=== PATIENT | female | born 1940 | race Caucasian/White ===

== ENCOUNTER 2018-11-05 10:06 | Day surgery (SDC) | payer MEDICARE, OTHER, SELFPAY ==
[2018-10-22 08:39] VITALS: BMI 27.1
[2018-11-05] VITALS (14 sets, daily range): BP systolic 116–175; BP diastolic 58–86; PULSE 77–100; RESP 9–20; TEMP 36.2–36.8; O2SAT 92–99; BMI 27.1
--- NOTE | 2018-11-05 11:09 | DI.RAD.S_ITS ---
PROCEDURE: XR KNEE RT 1TO2V INDICATIONS: prosthesis placement TECHNIQUE: 2 view(s) of the knee acquired. COMPARISON: None. FINDINGS: Bones: Patient is status post knee joint arthroplasty. Hardware components are in expected positions. Visualized bony structures are intact. Soft tissues: Overlying postoperative changes are noted. IMPRESSION: Postsurgical changes from right total knee arthroplasty with anatomic right knee alignment. Dictated by: Kodi Gastelum M.D. on 11/05/2018 at 15:24 Approved by: Kodi Gastelum M.D. on 11/05/2018 at 15:24
[2018-11-05] MEDS: PREGABALIN 75 MG CAPSULE PO (11:48)
[2018-11-05] MEDS: MELOXICAM 7.5 MG TABLET 15 MG PO (11:48)
[2018-11-05] MEDS: LACTATED RINGERS 1,000 ML 42 ML IV ×2 (12:00→14:39)
--- NOTE | 2018-11-05 12:24 | PM.PREOP ---
Pre-operative Note Interval Note History & Physical reviewed/Exam performed by Physician: Yes Changes to H&P: No
--- NOTE | 2018-11-05 13:03 | PM.OP.1 ---
Operative Date/Time/Diagnoses Date of procedure: 11/05/18 Time of procedure: 14:35 Pre-op diagnosis: Right knee osteoarthritis Post-op diagnosis: same Procedure & Clinicians Procedure: Right total knee replacement Same procedure as scheduled: Yes Indications: The patient has had progressively worsening right knee pain with radiographic changes consistent with arthritis. Non-operative management has failed and the patient has requested total knee replacement. The risks, benefits and alternatives to surgery were discussed with the patient prior to proceeding. Risks discussed included, but were not limited to, failure to relieve pain, stiffness, infection, nerve damage, deep venous thrombosis, pulmonary embolism, stroke, coma, heart attack, permanent paralysis and , as well as the potential need for eventual revision of the prosthetic. Surgeon: Guillermo Rivas Food Broker: Brigitte Morgan Click Yes if Unassisted: No Anesthesia Type: Spinal, Sedation and Local Operative Notes Findings: Severe medial and mild patellofemoral and lateral osteoarthritis Closure Type: primary Specimen(s): none sent Prosthetic devices, grafts, tissues, transplants, or devices: Implants used in this procedure were manufactured by the [employer] and [employer] and included the BCS II Journey total knee replacement with a size 5 right cobalt chromium femur, a size 4 right non porous tibial base plate, a 9 mm cross-linked polyethylene tibial insert and a 32 mm oval Fabienne II patellar component. Applied: implant(s) Estimated Blood Loss (mL): 50 Blood products transfused: none Tourniquet time (min): 54 Procedure in detail: The patient was seen in the pre-operative area, where the patient identified the right knee as the operative site and this was marked with my initials. The patient received pre-operative antibiotics, and was taken to the operating room and placed on the operative table in the supine position. After satisfactory anesthesia, a time motion analyst out was performed. The right leg was encircled with a tourniquet about the proximal thigh, and the leg was prepared from the toes to the tourniquet with ChloroPrep in the usual fashion and draped through sterile drapes. The leg was elevated and exsanguinated with Eschmark bandage and the tourniquet inflated to 250 mmHg pressure. The knee was approached through an approximately 18 cm incision centered over the patella and carried into the knee through a medial parapatellar arthrotomy. The anterior osteophytes and soft tissues were removed. The rotational landmarks of Meeker's line and the transepicondylar axis were marked on the femur with electrocautery, and intramedullary guide holes for the femur and tibia were created. The distal femoral cut was made in 6 degrees of valgus using the intramedullary guide at the primary cut setting. The proximal tibial cut was then made using the intramedullary guide, taking 9 mm of bone off the less involved side. The extension gap was checked and the rotation of the femoral component confirmed with the gap balancing system. The anterior, posterior and chamfer cuts were then made. The posterior osteophytes and soft tissues were then removed. The posterior capsule was injected with part of a mixture of 60 ml 0.25% Marcaine mixed with 20 ml Exparel and 4 mg of morphine for post-operative pain control. The remainder of this mixture was injected into the capsule and subcutaneous tissues during cement curing. The tibia was prepared with the rotation set by an extra medullary guide. Trial tibial and femoral components were then placed and the intercondylar notch cut through the femoral trial. Range of motion was 0-135 degrees, with good stability throughout the range. The patella was then cut to accommodate the patellar prosthetic. There was no need for a lateral release. The trials were then removed, and the femoral hole plugged with a bone plug. The bone was prepared with pulsatile lavage, and dried with a sponge. Cement was applied and the final prosthetics placed. Excess cement was removed during and after cement curing. After confirming there was no extruded cement posteriorly, the final tibial insert was placed. The knee was copiously irrigated and the tourniquet deflated. Hemostasis was obtained. The capsule was closed with interrupted # 2 polyester suture. The subcutaneous layer was closed with 3-0 Vicryl, and the skin with a running 3-0 V-Lock suture and SteriStrips. An Aquacel Ag dressing was applied and the patient was taken to recovery having tolerated the procedure well. Complications: none Condition: stable Disposition: PACU Plan for aftercare: The patient will be maintained on a standard total knee replacement protocol with weight bearing as tolerated. The patient will receive aspirin and sequential compression devices for DVT prophylaxis. The patient will be discharged home when safe for the home environment.
[2018-11-05] MEDS: CEFAZOLIN 1 GM VIAL IV (13:12)
--- NOTE | 2018-11-05 13:36 | SUR.OPER ---
Supine on padded OR bed. Pillow under head, arms secured on padded armboards <90 degree abduction. Safety belt across torso. Non-operative leg secured with tape over blanket over lower leg. Operative leg secured in DeMayo/Juan positioner. Foam padded brace at thigh of operative leg.
[2018-11-05] MEDS: BUPIVACAINE LIPOSOME 266 MG/20 ML VIAL INJ (13:41)
[2018-11-05] MEDS: MORPHINE 4 MG/ML INJ INJ (13:41)
[2018-11-05] MEDS: BUPIVACAINE 0.25% W/ EPI (PF) 10 ML VIAL 20 ML INJ (13:42)
[2018-11-05] MEDS: TRANEXAMIC ACID 1,000 MG VIAL 1000 MG INJ ×2 (13:43→14:09)
[2018-11-05] MEDS: MEPERIDINE 100 MG/ML 20 MG IV (15:16)
--- NOTE | 2018-11-05 15:42 | SUR.PHASEI ---
report called to floor; skin warm and dry, shivering subsided. Pt does not want ada hugger turned down, she is enjoying the heat. Denies pain/nausea, CBG reported to Dr. Blanton by JM Reinoso; order received.
[2018-11-05] MEDS: INSULIN ASPART 100 UNIT/ML 10ML VIAL SUBCUT (15:58)
--- NOTE | 2018-11-05 16:00 | SUR.PHASEI ---
insulin was a verbal order from Dr. Blanton/Noam Ruiz RN
--- NOTE | 2018-11-05 16:17 | SUR.PHASEI ---
1608 to room 211, family present. Patient dozing, arouses easily, oriented, Tolerated PO well, denies pain/nausea. Improving motion/sensation in LE; skin warm and dry; resp unlabored. clothing bag to room; report updated. SCD's on, Sat upper 90s, no O2 at this time, Rn informed that she needed O2 in PACU>
--- NOTE | 2018-11-05 16:27 | SUR.PHASEI ---
delay on exiting PACU was due to waiting for pharmacy to bring insulin; RN went and obtained medication.
[2018-11-05] MEDS: LACTATED RINGERS 1,000 ML 125 ML IV (16:35)
--- NOTE | 2018-11-05 17:31 | PT.IPTN ---
Current Diagnoses Unilateral primary osteoarthritis, right knee (11/05/18) Surgery Performed Operation Date: 11/05/18 12:15 Actual Procedures p Total Knee Arthroplasty(Right) - Guillermo Rivas MD Physical Therapy Treatment Note M3 PT-IP Subjective Start: 11/05/18 17:30 Freq: NEEDED Status: Active Protocol: Document 11/05/18 17:30 HH (Rec: 11/05/18 17:31 HH [id number]) Subjective Physical Therapy Visit Type Type Administrative Note Visit Start Time 17:30 Notes Pt is awake and AxOx4. R LE remains numb and no active movement noted except toes and ankle. TKA information book is given. Reattempt PT eval tomorrow.
--- NOTE | 2018-11-05 19:13 | PC.ADMIT ---
Addendum entered by Jodee Lei R.N. 11/05/18 22:16: 2030- pt given meds. started on 1L NC as pt o2 was high 80s on room air while sleeping. pt compliant. will continue to monitor. Original Note: Admission Note: 1610- to room. family at bedside. pt droqsy but arouses to voice. on 2L NC. saturation 100. weaned to 1L. does well. cont pulse ox on. 95% with il. updated pt on plan of care. given water and apple sauce. ate dinner. denied nausea. bed alarm on. oriented pt to room and hospital procedures. dressing c.d.i. pt cooperative with nursing assessment. many questions answered and pt and family appreciative. will continue to monitor. bed alarm on. side rails upx3.
[2018-11-05] MEDS: ASPIRIN EC 81 MG TABLET PO (20:55)
[2018-11-05] MEDS: DOCUSATE 100 MG CAPSULE PO (20:55)
[2018-11-05] MEDS: ACETAMINOPHEN 325 MG TABLET 975 MG PO (20:56)
[2018-11-05] MEDS: CEFAZOLIN 2 GM/100 ML FROZ.PIGGY IV (20:58)
[2018-11-05] MEDS: IBUPROFEN 400 MG TABLET PO (22:20)
[2018-11-06] VITALS (9 sets, daily range): BP systolic 104–138; BP diastolic 49–72; PULSE 70–75; RESP 14–20; TEMP 36.2–37.4; O2SAT 84–99
--- NOTE | 2018-11-06 01:10 | PC.NURSE ---
Addendum entered by Irina Amaro R.N. 11/06/18 05:59: Up to bathroom shortly after 0500 and complained of 6/10 right knee pain so medicated with Ibuprofen. Now asleep. Left oxygen off again to assess for need and currently O2 sat is 95%. Original Note: Addendum entered by Irina Amaro R.N. 11/06/18 01:32: RA sat 84% so placed back on oxygen at 1L/min Original Note: Patient is alert and oriented. Breath sounds CTA with sat of 97% on 1L/min oxygen so oxygen removed to assess need for continued O2. HRR. Denies nausea. BT hypoactive; denies flatus. Up to BSC with 1 assist (no walker used) and did well with getting in/out of bed by herself. Dressing (Aquacel + lilibeth wrap) CDI. Denies pain. CMS intact. Wearing bilateral SCD's. Able to turn self in bed. Reports frequent falls prior to admission; fall risk score is high and bed alarm is activated.
[2018-11-06] MEDS: LACTATED RINGERS 1,000 ML 125 ML IV (01:46)
[2018-11-06] MEDS: CEFAZOLIN 2 GM/100 ML FROZ.PIGGY IV (05:13)
[2018-11-06] MEDS: IBUPROFEN 400 MG TABLET PO ×3 (05:17→13:43)
[2018-11-06 06:29] LABS: Hematocrit 33.7 % (36-46); Hemoglobin 11.4 g/dL (12.0-16.0)
--- NOTE | 2018-11-06 07:33 | PM.DS.1 ---
History of Present Illness Date Patient Seen: 11/06/18 Time Patient Seen: 07:33 Chief complaint: Right Total Knee Arthroplasty Narrative: The history and physical are contained in the chart in a previously completed note. Please refer to that note for this information. Discharge Providers Date of admission: 11/05/18 10:06 Discharge Date: 11/06/18 Consults: 11/05/18 16:21 Consult to Discharge Planning Routine Comment: Consult to Physical Therapy Evaluate & Treat Comment: Physician Instructions: postop TKA protocol 11/05/18 16:40 Consult to Pastoral Services Routine Comment: patient would like a vist Discharge provider: Guillermo Rivas MD Summary Discharge Diagnosis: 1. Right knee osteoarthritis 2. Post hemorrhagic anemia Hospital Course: The patient was admitted to the hospital and taken directly to the operating room on November 05, 2018. She underwent a right total knee replacement without complications. on postoperative day 1 she was comfortable and controlling her pain with ibuprofen alone. As of this time, she has not had physical therapy but she is anxious to go home today if at all possible. Status at Discharge Cognitive/behavioral status at discharge: oriented Functional status at discharge: uses cane/walker Overall status at discharge: patient is progressing back to baseline Time Spent with Patient Less than 30 minutes Exam Vital Signs (past 8 hours): - 11/06/18 00:50 11/06/18 01:31 11/06/18 01:47 Temperature 99.3 F Pulse Rate 70 Respiratory Rate 18 Blood Pressure 104/49 L Pulse Oximetry 99 84 L 97 11/06/18 03:56 11/06/18 05:39 11/06/18 06:01 Temperature 98.0 F Pulse Rate 75 Respiratory Rate 20 Blood Pressure 138/69 Pulse Oximetry 97 94 95 Oxygen Delivery Method Room Air Oxygen Flow Rate 0 Narrative Exam Narrative: The right knee wound is dressed with no drainage on the bandage. Calf is soft. Light touch and motion are intact in right lower extremity. Objective Labs Result Diagrams: 11/06/18 06:03 Labs: Laboratory Results - last 24 hr 11/06/18 06:03 Hgb 11.4 L Hct 33.7 L Discharge Plan Discharge Plan Patient Disposition: Home Discharge Med Rec/Prescriptions Prescriptions: New aspirin 81 mg Tablet,Delayed Release (Dr/Ec) 81 mg PO BID 42 Days Qty: 84 RF: 0 Continued atorvastatin 40 mg Tablet 40 mg PO DAILY RF: 0 potassium chloride 10 mEq Capsule, Extended Release 10 meq PO DAILY RF: 0 amlodipine 5 mg Tablet 5 mg PO DAILY RF: 0 losartan-hydrochlorothiazide 100-25 mg Tablet 1 tab PO DAILY RF: 0 ibuprofen 200 mg Capsule 400 mg PO Q4-6H PRN (Reason: pain) RF: 0 hydroxyzine pamoate 25 mg Capsule 25 mg PO Q6H PRN (Reason: Spasms) RF: 0 meloxicam 15 mg Tablet 15 mg PO DAILY RF: 0 oxycodone 5 mg Capsule 1 - 2 tab PO Q4-6H PRN (Reason: Pain, Moderate) RF: 0 Follow up/Referrals: Guillermo Rivas MD [Physician] - 3-5 Days Provider Discharge Instructions Diet: Diet as Tolerated and Regular Activity: You may bear weight as tolerated on your right leg. Cold/Heat Therapy: Apply ice for 15 minutes of every hour to the right knee as needed for pain Skin/Wound/Dressing Care Report to your healthcare provider any signs of infection, such as:: chills, fever, night sweats, increased pain, unusual drainage and unusual redness Dressing: Remove the Scot wrap 3 days after surgery. Leave the deeper dressing in place until year postoperative follow-up. You may shower with your deeper dressing on. If the center strip gets wet with either water or significant blood please call the office. Visit Report/Discharge Packet Instructions: DI for Knee Replacement Stand Alone Forms: Surgery Discharge Discharge Data Attending Provider: Guillermo Rivas Admit Date/Time: 11/05/18 10:06 Quality VTE Deep Vein Thrombosis/Pulmonary Embolism Present on Admission: No
[2018-11-06] MEDS: SODIUM CHLORIDE 0.9% FLUSH 10 ML IV (08:39)
--- NOTE | 2018-11-06 08:48 | CM.DANOTE ---
DCP: Case received, EMR reviewed and met with patient. Introduced self and role. DCP template completed with information currently available. Patient is a 78 year old female who admitted yesterday morning to the care of the surgical team. PCP: LULY Chatterjee. Payer: confirmed: Medicare/[employer]. Patient came to hospital for Right Total Knee Arthroplasty. She has had history of chronic right knee pain secondary to arthritis.She is independent at home, lives with her spouse. She mentioned that she had a fall in June, which had made her knee worse. She also mentioned that she has had other surgeries, one was of her fibula, and she was at [facility] in [place]. She has outpatient physical therapy set up. She resides in [place]. P: Patient should be discharged home today, pending working with physical therapy. Eleanor Gallagher RN/Passenger Service Supervisor
[2018-11-06] MEDS: ACETAMINOPHEN 325 MG TABLET 975 MG PO ×2 (08:49→14:32)
[2018-11-06] MEDS: ASPIRIN EC 81 MG TABLET PO (08:53)
[2018-11-06] MEDS: DOCUSATE 100 MG CAPSULE PO (08:54)
[2018-11-06] MEDS: ATORVASTATIN 20 MG TABLET 40 MG PO (08:54)
[2018-11-06] MEDS: AMLODIPINE 5 MG TABLET PO (08:54)
[2018-11-06] MEDS: POTASSIUM CHLORIDE 10 MEQ TAB PO (08:55)
[2018-11-06] MEDS: hydroCHLOROthiazide 25 MG TABLET PO (08:55)
[2018-11-06] MEDS: LOSARTAN 50 MG TABLET 100 MG PO (08:55)
--- NOTE | 2018-11-06 09:31 | PT.IIE ---
Current Diagnoses Unilateral primary osteoarthritis, right knee (11/05/18) Surgery Performed Operation Date: 11/05/18 12:15 Actual Procedures p Total Knee Arthroplasty(Right) - Guillermo Rivas MD Surgical History (Last Updated 10/22/18 @ 09:19 by Munira Erazo, RN) History of right salpingo-oophorectomy (Acute) Hx of appendectomy (Acute) Hx of arthroscopy of right knee (Acute) Hx of tonsillectomy (Acute) Status post bilateral cataract extraction (Acute) Medical History (Last Updated 10/22/18 @ 09:19 by Munira Erazo RN) Ankle fracture, right (Acute) Anxiety (Acute) Arthritis (Acute) Bursitis (Acute) Carpal tunnel syndrome of left wrist (Acute) Cervical dystonia (Acute) DDD (degenerative disc disease) (Acute) DJD (degenerative joint disease) (Acute) Diabetes (Acute) Easy bruisability (Acute) Falls (Acute) H/O: hysterectomy (Acute) HLD (hyperlipidemia) (Acute) HTN (hypertension) (Acute) Herniated disc (Acute) Hypothyroidism (Acute) Imbalance (Acute) Insomnia (Acute) Numbness (Acute) RLS (restless legs syndrome) (Acute) Right fibular fracture (Acute ~11/2011) Skin cancer (Acute) Physical Therapy Inpatient Evaluation/Re-Eval M1 PT/OT-IP Prior Functional Status Start: 11/05/18 17:30 Freq: NEEDED Status: Active Protocol: Document 11/06/18 09:31 AB (Rec: 11/06/18 12:10 AB [id number]) Medical Review Prior Functional Status Medical History Reviewed Yes Communication able to make needs known Mobility and Gait staed that she is independent with all mobilities and ambulation without AD Prior Functional Level (Other details) pt with h/o falls with R knee giving out on her per pt. Last fall was last week Social History Household Members spouse Living Arrangements House Number of Floors (Floors) One Floor Number of Stairs To Enter/Railing? 2 steps to enter without rails Home Environment Standard Height Toilet Walk in Shower Built-In Shower Seat Home Equipment Front Wheel Walker Straight Cane Grab Bars In Shower Additional Social History Comment spouse will assist pt and daughter will also be able to be with pt few hours a day to assist her M2 PT-IP Current Condition Start: 11/05/18 17:30 Freq: NEEDED Status: Active Protocol: Document 11/06/18 09:31 AB (Rec: 11/06/18 12:10 AB [id number]) Physical Therapy Current Condition Current Condition Evaluation Date 11/06/18 Treatment Diagnosis s/p R TKA; difficulty in walking Onset Date 11/05/18 Weight Bearing Status Weight Bearing Status Weight Bear as Tolerated M3 PT-IP Subjective Start: 11/05/18 17:30 Freq: NEEDED Status: Active Protocol: Document 11/06/18 09:31 AB (Rec: 11/06/18 12:10 AB [id number]) Subjective Physical Therapy Visit Type Type Initial Evaluation Visit Start Time 09:31 Visit Stop Time 10:10 Total Visit Minutes 39 Number of LICENSED INSURANCE AGENT Visits 0 Physical Therapy Visit Comments Patient Comments pt agreeable to do PT Therapy Pain Assessment Pain When Pain Assessed During Mobility Pain Present Pain Present Pain Reported Location Right Knee Intensity 5 Scale Used Numeric (1 - 10) Pain Management Techniques Apply Cold Re-positioning Timing of Activity with Medications M4 PT-IP Mobility and Gait Start: 11/05/18 17:30 Freq: NEEDED Status: Active Protocol: Document 11/06/18 09:31 AB (Rec: 11/06/18 12:10 AB [id number]) PT-Bed Mobility Assessment Supine to Sit Supine to Sit Standby Assistance Sit to Supine Sit to Supine Standby Assistance PT-Transfer Assessment Sit to and From Stand Sit to and from Stand Moderate Assistance 1 Person Assistance Use of Upper Extremities Equipment Transfer Assistive Device Gait Belt Front Wheeled Walker Orthotic/Prosthetic Devices or Brace: No Transfers Transfer Destination Bed Transfer Technique pt ambulated using FWW Transfer Ability Level of Assist Moderate Assistance 1 Person Assistance Use of Upper Extremities Comments Mobility Comments pt stated that she has chronic RLE decrease sensation and does not know if she is activating her quads or not. pt also has decrease safety awareness affecting mobility. Gait Assessment Gait Gait Assistance Required: Moderate Assistance Distance (Feet) 15 Able to Maintain Weight Bearing Status Yes During Gait Assistive Devices Assistive Device Gait Belt Front Wheeled Walker Orthotic/Prosthetic Devices or Brace: No Gait Deviations General Gait Pattern Antalgic Decreased Stride Length Decreased Feet Clearance Factors Limiting Gait Function Factors Limiting Gait Function Decreased Activity Tolerance Decreased Sensation Decreased Strength Difficulty Following Directions Limited Range of Motion Pain Poor Balance Poor Safety Awareness PT-Balance Assessment Sitting Balance and Reactions Static Sitting Balance Ability Good Dynamic Sitting Balance Ability Good Standing Balance and Reactions Static Standing Balance Ability Fair Dynamic Standing Balance Ability Poor Device Used FWW M5 PT-IP Objective Assessments Start: 11/05/18 17:30 Freq: NEEDED Status: Active Protocol: Document 11/06/18 09:31 AB (Rec: 11/06/18 12:10 AB [id number]) Orientation Orientation/Cognition Level of Alertness Alert Orientation Name Place Situation Safety Awareness Decreased Safety Awareness Memory Description Short Term Impaired Gross Range of Motion Lower Extremity ROM Assessment Right Impaired Impairments R knee flexion: ~ 60 deg R knee extension: lacking ~ 10 deg to neutral Strength Lower Extremity Strength Assessment Right Impaired Hip 3-/5 Knee 3/5 Sensation Assessment Sensation Gross Sensation Right LE Impaired Sensation Description Numbness Comments Sensation Comments stated chronic numbness on RLE Muscle Tone Muscle Tone WNL Yes M6 PT-IP Treatment Start: 11/05/18 17:30 Freq: NEEDED Status: Active Protocol: Document 11/06/18 09:31 AB (Rec: 11/06/18 12:10 [id number]) Physical Therapy Treatment Exercises Exercises Quad Sets Heel Slides Education Education Provided Precautions Weight Bearing Status Post-Op Packet Safety M7 PT-IP Assessment and Plan Start: 11/05/18 17:30 Freq: NEEDED Status: Active Protocol: Document 11/06/18 09:31 AB (Rec: 11/06/18 12:10 AB [id number]) PT Summary Assessment and Plan Potential Rehabilitation Potential Good Status of Condition at Evaluation Evolving Summary Impairments Pain ROM Strength Balance Coordination Sensation Cognition Bed Mobility Transfers Gait Activity Tolerance Assessment Summary pt requiring mod A with mobility with c/o increase RLE pain with weight bearing. Pt just took tylenol this morning per nurse due to pt refusing to take oxycodone. educated pt regarding pain control after mobilizing with PT and pt understood and agreed to take pain meds. will continue to assess mobility. Goals Bed Mobility Goal Independent Transfer Goal Standby Assistance Front Wheeled Walker Gait Goal Standby Assistance Front Wheel Walker Gait Distance 150 Other Goals up/down 2 steps using SPC/MEDICAL RECORDS ADMINISTRATOR CGA Days to Meet Goals 5 Frequency of Treatment Frequency Of Treatment Twice a Day Treatment Plan Physical Therapy Treatment Plan Bed Mobility Training Transfer Training Gait Training Therapeutic Exercise Balance Retraining Post Op Education Discharge Planning Hot or Cold Pack Neuromuscular Re-ed Coordination Retraining Manual Therapy Other Recommendations and Next Treatment ambulation, stair climbing Focus Recommendations To Nursing Amount of Assist Needed 1 Person Assist Discharge Recommendations PT Discharge Recommendations Home with Assistance Outpatient PT
[2018-11-06] MEDS: OXYCODONE IR 5 MG TABLET PO ×3 (10:21→13:48)
--- NOTE | 2018-11-06 11:15 | PC.NURSE ---
Day Shift- Pt pain with rest 1/10, with movement 5/10. Scheduled Tylenol and prn Ibuprofen given at 0900. Discussed pre-medication prior to PT sessions. Pain 8/10 with movement to BR, PRN Oxycodone 5mg given at 1025 with good effect. Right knee aquacel dressing CDI with lilibeth wrap. CMS+, has numbness to right foot that is normal for her. has first postoperative appointment F/U in office this in [facility].
--- NOTE | 2018-11-06 16:12 | PT.IPTN ---
Current Diagnoses Unilateral primary osteoarthritis, right knee (11/05/18) Surgery Performed Operation Date: 11/05/18 12:15 Actual Procedures p Total Knee Arthroplasty(Right) - Guillermo Rivas MD Physical Therapy Treatment Note M2 PT-IP Current Condition Start: 11/05/18 17:30 Freq: NEEDED Status: Active Protocol: Document 11/06/18 09:31 AB (Rec: 11/06/18 12:10 AB [id number]) Physical Therapy Current Condition Current Condition Evaluation Date 11/06/18 Treatment Diagnosis s/p R TKA; difficulty in walking Onset Date 11/05/18 Weight Bearing Status Weight Bearing Status Weight Bear as Tolerated M3 PT-IP Subjective Start: 11/05/18 17:30 Freq: NEEDED Status: Active Protocol: Document 11/06/18 14:30 CLB (Rec: 11/06/18 16:12 CLB [id number]) Subjective Physical Therapy Visit Type Type Treatment Note Visit Start Time 14:30 Visit Stop Time 15:10 Total Visit Minutes 40 Number of [employer] Visits 1 Physical Therapy Visit Comments Patient Comments pt agreeable to do PT Therapy Pain Assessment Pain When Pain Assessed During Mobility Pain Present Pain Present Pain Reported Location Right Knee Intensity 5 Scale Used Numeric (1 - 10) Pain Management Techniques Apply Cold Re-positioning Timing of Activity with Medications M4 PT-IP Mobility and Gait Start: 11/05/18 17:30 Freq: NEEDED Status: Active Protocol: Document 11/06/18 14:30 CLB (Rec: 11/06/18 16:12 CLB [id number]) PT-Bed Mobility Assessment Supine to Sit Supine to Sit Standby Assistance Scooting Scooting to Edge of Bed Standby Assistance PT-Transfer Assessment Sit to and From Stand Sit to and from Stand Contact Guard Assistance Use of Upper Extremities Equipment Transfer Assistive Device Gait Belt Front Wheeled Walker Orthotic/Prosthetic Devices or Brace: No Transfers Transfer Destination Chair Wheelchair Transfer Ability Level of Assist Contact Guard Assistance Comments Mobility Comments Pt improving with all mobility and transfers able to get to EOB w/o assist. Gait Assessment Gait Gait Assistance Required: Contact Guard Assist 1 Person Assist Distance (Feet) 100 Able to Maintain Weight Bearing Status Yes During Gait Assistive Devices Assistive Device Gait Belt Front Wheeled Walker Orthotic/Prosthetic Devices or Brace: No Gait Deviations General Gait Pattern Antalgic Decreased Stride Length Decreased Feet Clearance Factors Limiting Gait Function Factors Limiting Gait Function Decreased Activity Tolerance Decreased Sensation Decreased Strength Difficulty Following Directions Limited Range of Motion Pain Poor Balance Poor Safety Awareness Comments Gait Comments Pt ambulated with step to and small step through gait pattern with good use of FWW. Stair Climbing Assessment Evaluation Level of Assist On Stairs Contact Guard Assistance 1 Person Assistance Devices Stair Climbing Assistive Devices Straight Cane Technique/Endurance Stair Climbing Direction Ascend and Descend Stair Climbing Technique Step to Step Number of Steps Climbed 3 Query Text: Stair Climbing Set # Repetitions (reps) 2 Comments Stair Climbing Comments Pt required use of SPC/[employer] as she has no hand rails. Pt able to perform two sets with minimal increase in pain. M5 PT-IP Objective Assessments Start: 11/05/18 17:30 Freq: NEEDED Status: Active Protocol: Document 11/06/18 09:31 AB (Rec: 11/06/18 12:10 AB [id number]) Orientation Orientation/Cognition Level of Alertness Alert Orientation Name Place Situation Safety Awareness Decreased Safety Awareness Memory Description Short Term Impaired Gross Range of Motion Lower Extremity ROM Assessment Right Impaired Impairments R knee flexion: ~ 60 deg R knee extension: lacking ~ 10 deg to neutral Strength Lower Extremity Strength Assessment Right Impaired Hip 3-/5 Knee 3/5 Sensation Assessment Sensation Gross Sensation Right LE Impaired Sensation Description Numbness Comments Sensation Comments stated chronic numbness on RLE Muscle Tone Muscle Tone WNL Yes M6 PT-IP Treatment Start: 11/05/18 17:30 Freq: NEEDED Status: Active Protocol: Document 11/06/18 14:30 CLB (Rec: 11/06/18 16:12 CLB [id number]) Physical Therapy Treatment Exercises Exercises Ankle Pumps Quad Sets Heel Slides Straight Leg Raises Short Arc Quads Passive Knee Extension Hang Education Education Provided Precautions Weight Bearing Status Post-Op Packet Safety M7 PT-IP Assessment and Plan Start: 11/05/18 17:30 Freq: NEEDED Status: Active Protocol: Document 11/06/18 14:30 CLB (Rec: 11/06/18 16:12 CLB [id number]) PT Summary Assessment and Plan Summary Impairments Pain ROM Strength Balance Coordination Sensation Cognition Bed Mobility Transfers Gait Activity Tolerance Assessment Summary Pt improved with all mobility and was able to get to EOB SBA . Pt required CGA to stand and CGA for gait and stair training. Pt has good pain control and states she is feeling much better. Goals Bed Mobility Goal Independent Transfer Goal Standby Assistance Front Wheeled Walker Gait Goal Standby Assistance Front Wheel Walker Gait Distance 150 Other Goals up/down 2 steps using SPC[employer] CGA Days to Meet Goals 5 Frequency of Treatment Frequency Of Treatment Twice a Day Treatment Plan Physical Therapy Treatment Plan Bed Mobility Training Transfer Training Gait Training Therapeutic Exercise Balance Retraining Post Op Education Discharge Planning Hot or Cold Pack Neuromuscular Re-ed Coordination Retraining Manual Therapy Other Recommendations and Next Treatment ambulation, stair climbing Focus Recommendations To Nursing Amount of Assist Needed 1 Person Assist Discharge Recommendations PT Discharge Recommendations Home with Assistance Outpatient PT
[2018-11-06] MEDS: OXYCODONE IR 10 MG TABLET PO (17:33)
--- NOTE | 2018-11-06 17:56 | PC.NURSE ---
Patient discharged from hospital. Daughter with all belongings and paper work. One percolone given before leaving hospital. Pt escorted out via wheelchair by hospital staff.
== END 2018-11-06 17:45 | disposition home or self-care (01) ==
LOC: AC 11-06 12:50 → OR 11-07 13:17
PROVIDERS: Visit Provider Orthopaedic Surgery
PROC: 0SRC0JZ Replacement of Right Knee Joint with Synthetic Substitute, Open Approach (ICD-10-PCS; CPT 27447; principal; 2018-11-05 12:15)
DX: M17.11 Unilateral primary osteoarthritis, right knee (principal); G62.9 Polyneuropathy, unspecified; R27.0 Ataxia, unspecified; I10 Essential (primary) hypertension; E11.9 Type 2 diabetes mellitus without complications
CPT/HCPCS: 27447; 36415; 73560; 82962; 85014; 85018; 94760; 94762; 97110; 97116; 97162; 97530; C1776; C9290; J0690; J2175; J2250; J2270; J2274; J2405; J2704; J3010